=== PATIENT | female | born 1945 | race Caucasian/White ===

== ENCOUNTER 2024-04-06 12:31 | Inpatient (IN) | payer MEDICARE ==
[2024-04-06 13:07] LABS: #Basophils 0.06 10x3/uL (0.0-0.2); %Basophils 0.9 % (0.0-1.0); %Eosinophils 3.2 % (0.0-10.0); %Lymphocytes 33.9 % (21.0-51.0); %Neutrophils 52.5 % (42.0-75.0); Hematocrit 35.8 % (36.0-47.0); Hemoglobin 12.1 g/dL (12.0-16.0); Mean Corpuscular HGB CONC 33.8 g/dL (32.0-36.0); Mean Corpuscular Hemoglobin 32.5 pg (27.0-31.0); Mean Corpuscular Volume 96.2 fL (78.0-98.0); Mean Platelet Volume 9.7 fL (7.4-10.4); Platelet Count 248 10x3/uL (130-400); Red Blood Cell (RBC) Count 3.72 mill/uL (4.20-5.40)
[2024-04-06 13:34] LABS: Troponin I Less than 0.010 ng/mL (< 0.028)
[2024-04-06 13:35] LABS: ALT (SGPT) 19 U/L (8-55); AST (SGOT) 14 U/L (5-34); Albumin 3.9 g/dL (3.4-4.8); Alkaline Phosphatase 62 U/L (40-110); Anion Gap 15 mmol/L (10-20); BUN (Urea Nitrogen) 59 mg/dL (9.8-20.1); Bilirubin, Total 0.3 mg/dL (0.2-1.2); Calc. Creatinine Clearance 0 mL/min (70-130); Calcium 9.6 mg/dL (7.8-10.44); Carbon Dioxide 11 mmol/L (23-31); Chloride 103 mmol/L (98-107); Estimated GFR 20; Globulin 2.5 g/dL (2.4-3.5); Glucose 100 mg/dL (83-110); Magnesium 2.2 mg/dL (1.6-2.6); Potassium 6.8 mmol/L (3.5-5.1); Protein, Total 6.4 g/dL (5.8-8.1); Sodium 122 mmol/L (136-145)
[2024-04-06] MEDS ORDERED: Sodium Bicarb 50 MEQ/50 ML Abboject 8.4% SYRINGE ONE (13:47)
[2024-04-06] MEDS ORDERED: CALCIUM GLUC 1 GM/NS 50 ML IV Bag ONE (13:47)
[2024-04-06] MEDS ORDERED: Insulin Regular, Human 100 UNIT/ML 10 ML VIAL ONE (14:20)
[2024-04-06] MEDS ORDERED: Albuterol 2.5 MG (3 mL) NEB ONE (14:24)
[2024-04-06] MEDS ORDERED: Sodium Bicarbonate 150 mEq in Dextrose 5% IV SCH (15:45)
[2024-04-06 17:31] LABS: Anion Gap 13 mmol/L (10-20); BUN (Urea Nitrogen) 50 mg/dL (9.8-20.1); Calc. Creatinine Clearance 0 mL/min (70-130); Calcium 9.4 mg/dL (7.8-10.44); Carbon Dioxide 12 mmol/L (23-31); Chloride 108 mmol/L (98-107); Estimated GFR 29; Glucose 95 mg/dL (83-110); Potassium 4.6 mmol/L (3.5-5.1); Sodium 128 mmol/L (136-145)
[2024-04-06 17:39] VITALS: BMI 22.8
[2024-04-06] MEDS: Dextrose 50% Abboject 50 ML SYRINGE SLOW IVP SCH (17:50)
[2024-04-06] MEDS: Pancrelipase DR 12,000 1 CAP PO SCH (17:51)
[2024-04-06] MEDS: Sodium Bicarbonate 150 MEQ in Dextrose 5% in Water 1,000 ML IV SCH (17:51)
[2024-04-06] MEDS: Acetaminophen 325 MG TAB PO SCH (18:34)
[2024-04-06] MEDS: Atorvastatin Calcium 20 MG TAB PO SCH (20:15)
[2024-04-06 23:17] LABS: Sodium 127 mmol/L (136-145)
[2024-04-06 23:30] LABS: Bacteria/HPF 1+ HPF (None Seen); Bilirubin Negative (Negative); Blood, Urine Negative (Negative); Clarity Clear (Clear); Glucose, Urine (Dipstick) Normal (Negative); Ketone, Urine Negative (Negative); Leukocyte Negative Leu/uL (Negative); Nitrite Negative (Negative); Protein, Urine (Dipstick) Negative (Neg-Trace); RBC/HPF 0-3 HPF (0-3); Specific Gravity, Urine 1.009 (1.002-1.036); Squamous Epithelial None Seen HPF (0-3); Urobilinogen Normal mg/dL (Less than 2); WBC/HPF 0-3 HPF (0-3)
[2024-04-07] MEDS: traZODone HCl 50 MG TAB PO SCH ×2 (00:07→21:11)
[2024-04-07 02:12] LABS: #Basophils 0.06 10x3/uL (0.0-0.2); %Lymphocytes 36.7 % (21.0-51.0); %Monocytes 11.4 % (0.0-10.0); %Neutrophils 46.6 % (42.0-75.0); Hematocrit 29.3 % (36.0-47.0); Hemoglobin 10.4 g/dL (12.0-16.0); Mean Corpuscular HGB CONC 35.5 g/dL (32.0-36.0); Mean Corpuscular Hemoglobin 32.2 pg (27.0-31.0); Mean Corpuscular Volume 90.7 fL (78.0-98.0); Platelet Count 210 10x3/uL (130-400); RBC Distribution Width 12.8 % (11.5-14.5); Red Blood Cell (RBC) Count 3.23 mill/uL (4.20-5.40)
[2024-04-07 02:20] LABS: Sodium 124 mmol/L (136-145)
[2024-04-07 03:24] LABS: Anion Gap 13 mmol/L (10-20); BUN (Urea Nitrogen) 47 mg/dL (9.8-20.1); Calc. Creatinine Clearance 26 mL/min (70-130); Calcium 8.9 mg/dL (7.8-10.44); Carbon Dioxide 17 mmol/L (23-31); Chloride 100 mmol/L (98-107); Estimated GFR 34; Glucose 111 mg/dL (83-110); Potassium 4.7 mmol/L (3.5-5.1); Sodium 125 mmol/L (136-145)
[2024-04-07] MEDS: Enoxaparin 30 MG (0.3 mL) SYRINGE SC SCH (08:18)
[2024-04-07] MEDS: Sertraline 100 MG TAB PO SCH (08:18)
[2024-04-07] MEDS: Pantoprazole DR 40 MG TAB PO SCH (08:18)
[2024-04-07] MEDS: Sodium Bicarbonate 150 mEq in Dextrose 5% IV SCH (08:21)
[2024-04-07 13:33] LABS: Campy jejuni + coli by PCR POSITIVE (Negative); STEC Shiga Toxin 1+2 Negative (Negative); Salmonella spp. by PCR Negative (Negative); Shigella spp + EIEC by PCR Negative (Negative)
[2024-04-07 15:00] LABS: Anion Gap 14 mmol/L (10-20); BUN (Urea Nitrogen) 38 mg/dL (9.8-20.1); Calc. Creatinine Clearance 34 mL/min (70-130); Calcium 9.2 mg/dL (7.8-10.44); Carbon Dioxide 22 mmol/L (23-31); Chloride 97 mmol/L (98-107); Estimated GFR 48; Glucose 124 mg/dL (83-110); Potassium 4.4 mmol/L (3.5-5.1); Sodium 129 mmol/L (136-145)
[2024-04-07 16:42] LABS: Magnesium 1.8 mg/dL (1.6-2.6); Phosphorus 3.5 mg/dL (2.3-4.7)
[2024-04-07] MEDS ORDERED: Acetaminophen 325 MG TAB PO PRN (18:55)
[2024-04-07 19:47] LABS: Sodium 130 mmol/L (136-145)
[2024-04-07] MEDS: Thiamine 100 MG TAB PO SCH (21:08)
[2024-04-07] MEDS: Famotidine 20 MG TAB PO SCH (21:08)
[2024-04-07] MEDS: Folic Acid 1 MG TAB PO SCH (21:08)
[2024-04-07] MEDS: Montelukast Sodium 10 mg Tablet PO SCH (21:08)
[2024-04-07] MEDS: Multivit, Therapeutic 1 TAB PO SCH (21:10)
[2024-04-07] MEDS: Cyanocobalamin (Vitamin B-12) 1,000 MCG TAB PO SCH (21:10)
[2024-04-07] MEDS: Colestipol 1 GM TAB PO SCH (22:09)
[2024-04-07] MEDS: tiZANidine HCl 4 MG TAB PO PRN (22:32)
[2024-04-08 05:52] LABS: #Basophils 0.06 10x3/uL (0.0-0.2); %Basophils 1.2 % (0.0-1.0); %Eosinophils 5.4 % (0.0-10.0); %Monocytes 11.8 % (0.0-10.0); %Neutrophils 30.4 % (42.0-75.0); Hematocrit 28.5 % (36.0-47.0); Hemoglobin 10.1 g/dL (12.0-16.0); Mean Corpuscular HGB CONC 35.4 g/dL (32.0-36.0); Mean Corpuscular Hemoglobin 32.4 pg (27.0-31.0); Mean Corpuscular Volume 91.3 fL (78.0-98.0); Mean Platelet Volume 9.8 fL (7.4-10.4); Platelet Count 193 10x3/uL (130-400); RBC Distribution Width 12.9 % (11.5-14.5); Red Blood Cell (RBC) Count 3.12 mill/uL (4.20-5.40)
[2024-04-08 06:10] LABS: Anion Gap 11 mmol/L (10-20); BUN (Urea Nitrogen) 30 mg/dL (9.8-20.1); Calc. Creatinine Clearance 38 mL/min (70-130); Calcium 8.8 mg/dL (7.8-10.44); Carbon Dioxide 31 mmol/L (23-31); Chloride 94 mmol/L (98-107); Estimated GFR 55; Glucose 122 mg/dL (83-110); Magnesium 1.7 mg/dL (1.6-2.6); Phosphorus 2.8 mg/dL (2.3-4.7); Potassium 3.8 mmol/L (3.5-5.1); Sodium 132 mmol/L (136-145)
[2024-04-08 07:12] LABS: Vitamin D, 25 Hydroxy 46.3 ng/ml (> 30.0)
[2024-04-08] MEDS ORDERED: Magnesium 2 GM/50 ML(in water) 2 GM in Premix 1 BAG IVPB SCH (09:00)
[2024-04-08] MEDS: Sodium Chloride 0.9% 1,000 ML IV SCH (09:40)
[2024-04-08] MEDS: Sertraline 100 MG TAB PO SCH (09:40)
[2024-04-08] MEDS: Aspirin Chewable 81 MG TAB PO SCH (09:40)
[2024-04-08] MEDS: Azithromycin 250 MG TAB PO SCH (09:41)
[2024-04-09] MEDS: Nitroglycerin 0.4 MG TAB (25 Tab Bottle) SL PRN (00:09)
[2024-04-09 01:06] LABS: Troponin I 0.022 ng/mL (< 0.028)
[2024-04-09 07:01] LABS: #Basophils 0.04 10x3/uL (0.0-0.2); %Basophils 0.7 % (0.0-1.0); %Eosinophils 5.7 % (0.0-10.0); %Lymphocytes 51.8 % (21.0-51.0); %Monocytes 11.1 % (0.0-10.0); %Neutrophils 30.5 % (42.0-75.0); Hematocrit 28.3 % (36.0-47.0); Hemoglobin 9.7 g/dL (12.0-16.0); Mean Corpuscular HGB CONC 34.3 g/dL (32.0-36.0); Mean Corpuscular Hemoglobin 32.7 pg (27.0-31.0); Mean Corpuscular Volume 95.3 fL (78.0-98.0); Mean Platelet Volume 10.1 fL (7.4-10.4); Platelet Count 186 10x3/uL (130-400); Red Blood Cell (RBC) Count 2.97 mill/uL (4.20-5.40)
[2024-04-09 07:26] LABS: Phosphorus 2.7 mg/dL (2.3-4.7)
[2024-04-09 07:28] LABS: Anion Gap 10 mmol/L (10-20); BUN (Urea Nitrogen) 17 mg/dL (9.8-20.1); Calc. Creatinine Clearance 46 mL/min (70-130); Calcium 8.8 mg/dL (7.8-10.44); Carbon Dioxide 27 mmol/L (23-31); Chloride 102 mmol/L (98-107); Estimated GFR 69; Glucose 87 mg/dL (83-110); Magnesium 1.7 mg/dL (1.6-2.6); Potassium 4.6 mmol/L (3.5-5.1); Sodium 134 mmol/L (136-145)
[2024-04-10 06:02] LABS: #Basophils 0.07 10x3/uL (0.0-0.2); %Basophils 1.1 % (0.0-1.0); %Eosinophils 6.4 % (0.0-10.0); %Lymphocytes 53.8 % (21.0-51.0); %Neutrophils 29.4 % (42.0-75.0); Hematocrit 30.6 % (36.0-47.0); Hemoglobin 10.3 g/dL (12.0-16.0); Mean Corpuscular HGB CONC 33.7 g/dL (32.0-36.0); Mean Corpuscular Hemoglobin 32.4 pg (27.0-31.0); Mean Corpuscular Volume 96.2 fL (78.0-98.0); Mean Platelet Volume 10.1 fL (7.4-10.4); Platelet Count 221 10x3/uL (130-400); Red Blood Cell (RBC) Count 3.18 mill/uL (4.20-5.40)
[2024-04-10 06:21] LABS: Anion Gap 7 mmol/L (10-20); BUN (Urea Nitrogen) 13 mg/dL (9.8-20.1); Calc. Creatinine Clearance 48 mL/min (70-130); Calcium 9.2 mg/dL (7.8-10.44); Carbon Dioxide 23 mmol/L (23-31); Chloride 108 mmol/L (98-107); Estimated GFR 72; Glucose 90 mg/dL (83-110); Potassium 4.5 mmol/L (3.5-5.1); Sodium 133 mmol/L (136-145)
[2024-04-10] MEDS: Lisinopril 20 MG TAB PO SCH (09:06)
[2024-04-10 11:34] VITALS: BP 145/73; TEMP 97.2
== END 2024-04-10 11:34 | disposition home or self-care (01) | DRG 372 ==
LOC: ERS 12:31 → IMCU/EMU 16:58 → T4-A 04-08 18:15
PROVIDERS: ADMIT Hospitalist; ATTEND Internal Medicine
DX: A04.5 Campylobacter enteritis (principal); E87.1 Hypo-osmolality and hyponatremia; N17.9 Acute kidney failure, unspecified; E87.20 Acidosis, unspecified; I13.0 Hypertensive heart and chronic kidney disease with heart failure and stage 1 through stage 4 chronic kidney disease, or unspecified chronic kidney disease; Z51.5 Encounter for palliative care; R53.1 Weakness; K52.9 Noninfective gastroenteritis and colitis, unspecified; F17.210 Nicotine dependence, cigarettes, uncomplicated; E87.5 Hyperkalemia; I73.9 Peripheral vascular disease, unspecified; J44.9 Chronic obstructive pulmonary disease, unspecified; N18.9 Chronic kidney disease, unspecified; I50.9 Heart failure, unspecified; D63.1 Anemia in chronic kidney disease
CPT/HCPCS: 36415; 71045; 76770; 80048; 80053; 81001; 82306; 82607; 82941; 83605; 83630; 83735; 84100; 84484; 84586; 85025; 86141; 86850; 86900; 86901; 87324; 87449; 87505; 93005; 93010; 96361; 96374; 96375; J0613; J1650; J1815; J7050; J7070; J7611; J7999

== ENCOUNTER 2024-04-11 13:55 | Inpatient (IN) | payer MEDICARE ==
[2024-04-11 14:46] LABS: #Basophils 0.07 10x3/uL (0.0-0.2); %Basophils 0.8 % (0.0-1.0); %Eosinophils 2.9 % (0.0-10.0); %Lymphocytes 40.8 % (21.0-51.0); %Monocytes 7.3 % (0.0-10.0); %Neutrophils 47.8 % (42.0-75.0); Hematocrit 31.7 % (36.0-47.0); Hemoglobin 11.1 g/dL (12.0-16.0); Mean Corpuscular Hemoglobin 32.6 pg (27.0-31.0); Mean Corpuscular Volume 93.2 fL (78.0-98.0); Mean Platelet Volume 9.6 fL (7.4-10.4); Platelet Count 263 10x3/uL (130-400); RBC Distribution Width 12.9 % (11.5-14.5)
[2024-04-11 14:57] LABS: Bacteria/HPF None Seen HPF (None Seen); Bilirubin Negative (Negative); Blood, Urine Negative (Negative); CAUTI Indications for Culture Pelvic or flank pain; Clarity Clear (Clear); Glucose, Urine (Dipstick) Normal (Negative); Ketone, Urine Negative (Negative); Leukocyte Negative Leu/uL (Negative); Nitrite Negative (Negative); Protein, Urine (Dipstick) Negative (Neg-Trace); RBC/HPF None Seen HPF (0-3); Specific Gravity, Urine 1.006 (1.002-1.036); Squamous Epithelial None Seen HPF (0-3); Urobilinogen Normal mg/dL (Less than 2); WBC/HPF 0-3 HPF (0-3)
[2024-04-11 15:03] LABS: ALT (SGPT) 14 U/L (8-55); AST (SGOT) 16 U/L (5-34); Albumin 3.7 g/dL (3.4-4.8); Alkaline Phosphatase 57 U/L (40-110); Anion Gap 15 mmol/L (10-20); BUN (Urea Nitrogen) 16 mg/dL (9.8-20.1); Bilirubin, Total 0.3 mg/dL (0.2-1.2); Calc. Creatinine Clearance 0 mL/min (70-130); Calcium 9.8 mg/dL (7.8-10.44); Carbon Dioxide 19 mmol/L (23-31); Chloride 104 mmol/L (98-107); Estimated GFR 49; Globulin 2.5 g/dL (2.4-3.5); Glucose 110 mg/dL (83-110); Magnesium 1.6 mg/dL (1.6-2.6); Potassium 4.3 mmol/L (3.5-5.1); Protein, Total 6.2 g/dL (5.8-8.1); Sodium 134 mmol/L (136-145)
[2024-04-11 15:03] LABS: Urine Culture Reflex No No
[2024-04-11 15:06] LABS: Troponin I Less than 0.010 ng/mL (< 0.028)
[2024-04-11] MEDS ORDERED: Nicotine 14 MG PATCH TD PRN (17:58)
[2024-04-11] MEDS ORDERED: Albuterol 200 PUFF (6.7GM INHALER) INH PRN (18:01)
[2024-04-11 19:37] LABS: Magnesium 1.6 mg/dL (1.6-2.6)
[2024-04-11] MEDS ORDERED: LIPASE PO SCH (21:00)
[2024-04-11] MEDS ORDERED: AMYLASE PO SCH (21:00)
[2024-04-11] MEDS ORDERED: PROTEASE PO SCH (21:00)
[2024-04-11] MEDS: Montelukast Sodium 10 mg Tablet PO SCH (21:47)
[2024-04-11] MEDS: traZODone HCl 50 MG TAB PO SCH (21:47)
[2024-04-11 23:32] VITALS: BMI 24.3
[2024-04-12 05:15] LABS: Cardiac Risk 2.3 (Less than 4.5)
[2024-04-12] MEDS: Famotidine 20 MG TAB PO SCH ×2 (09:01→20:55)
[2024-04-12] MEDS: Aspirin Chewable 81 MG TAB PO SCH (09:02)
[2024-04-12] MEDS: Pantoprazole DR 40 MG TAB PO SCH (09:02)
[2024-04-12] MEDS: Sertraline 100 MG TAB PO SCH (09:02)
[2024-04-12] MEDS: Atorvastatin Calcium 20 MG TAB PO SCH (09:02)
[2024-04-12] MEDS ORDERED: Ondansetron ODT 4 MG TAB PO PRN (15:39)
[2024-04-12] MEDS ORDERED: Ondansetron PF 4 MG/2 ML Vial IVP PRN (15:39)
[2024-04-12] MEDS: Acetaminophen 325 MG TAB PO SCH (16:49)
[2024-04-13 05:10] LABS: Anion Gap 9 mmol/L (10-20); BUN (Urea Nitrogen) 19 mg/dL (9.8-20.1); Calc. Creatinine Clearance 45 mL/min (70-130); Calcium 8.6 mg/dL (7.8-10.44); Carbon Dioxide 23 mmol/L (23-31); Cardiac Risk 2.2 (Less than 4.5); Chloride 105 mmol/L (98-107); Cholesterol 101 mg/dl (< 200 Desired); Estimated GFR 65; Glucose 100 mg/dL (83-110); HDL Cholesterol 45 mg/dL (>60 Neg Risk); LDL Cholesterol, Calculated 46 mg/dL; Sodium 133 mmol/L (136-145); Triglycerides 50 mg/dL (Less than 150)
[2024-04-13 05:11] LABS: #Basophils 0.06 10x3/uL (0.0-0.2); %Basophils 0.9 % (0.0-1.0); %Eosinophils 6.2 % (0.0-10.0); %Lymphocytes 55.7 % (21.0-51.0); %Neutrophils 28.9 % (42.0-75.0); Hematocrit 28.9 % (36.0-47.0); Hemoglobin 9.7 g/dL (12.0-16.0); Mean Corpuscular HGB CONC 33.6 g/dL (32.0-36.0); Mean Corpuscular Hemoglobin 31.9 pg (27.0-31.0); Mean Corpuscular Volume 95.1 fL (78.0-98.0); Mean Platelet Volume 10.1 fL (7.4-10.4); Platelet Count 210 10x3/uL (130-400); RBC Distribution Width 13.2 % (11.5-14.5); Red Blood Cell (RBC) Count 3.04 mill/uL (4.20-5.40)
[2024-04-13] MEDS: Enoxaparin 40 MG (0.4 mL) SYRINGE SC SCH (10:14)
[2024-04-13 12:54] VITALS: BMI 23.6
[2024-04-13] MEDS: NIFEdipine XL 30 MG ER.TAB PO SCH (18:40)
[2024-04-14 04:15] LABS: #Basophils 0.05 10x3/uL (0.0-0.2); %Basophils 0.8 % (0.0-1.0); %Eosinophils 6.6 % (0.0-10.0); %Lymphocytes 47.2 % (21.0-51.0); %Monocytes 7.4 % (0.0-10.0); %Neutrophils 37.7 % (42.0-75.0); Hematocrit 29.8 % (36.0-47.0); Hemoglobin 9.9 g/dL (12.0-16.0); Mean Corpuscular HGB CONC 33.2 g/dL (32.0-36.0); Mean Corpuscular Hemoglobin 32.2 pg (27.0-31.0); Mean Corpuscular Volume 97.1 fL (78.0-98.0); Mean Platelet Volume 9.6 fL (7.4-10.4); Platelet Count 201 10x3/uL (130-400); Red Blood Cell (RBC) Count 3.07 mill/uL (4.20-5.40)
[2024-04-14 04:55] LABS: ALT (SGPT) 13 U/L (8-55); AST (SGOT) 12 U/L (5-34); Alkaline Phosphatase 47 U/L (40-110); Anion Gap 11 mmol/L (10-20); BUN (Urea Nitrogen) 15 mg/dL (9.8-20.1); Bilirubin, Direct 0.1 mg/dL (0.1-0.3); Bilirubin, Total 0.2 mg/dL (0.2-1.2); Calc. Creatinine Clearance 46 mL/min (70-130); Calcium 8.8 mg/dL (7.8-10.44); Carbon Dioxide 24 mmol/L (23-31); Chloride 105 mmol/L (98-107); Estimated GFR 67; Glucose 92 mg/dL (83-110); Magnesium 1.8 mg/dL (1.6-2.6); Potassium 4.5 mmol/L (3.5-5.1); Protein, Total 5.1 g/dL (5.8-8.1); Sodium 135 mmol/L (136-145)
[2024-04-14] MEDS: NIFEdipine XL 30 MG ER.TAB PO SCH (10:18)
[2024-04-14] MEDS ORDERED: Lidocaine 1% w/Epinephrine 1:100K 20 ML VIAL ONE (13:07)
[2024-04-14] MEDS: Magnesium 2 GM/50 ML(in water) 2 GM in Premix 1 BAG IVPB SCH (18:44)
[2024-04-14] MEDS: hydrALAZINE 20 MG/ML VIAL SLOW IVP SCH (20:32)
[2024-04-14 23:32] LABS: ALT (SGPT) 16 U/L (8-55); AST (SGOT) 16 U/L (5-34); Albumin 3.4 g/dL (3.4-4.8); Alkaline Phosphatase 57 U/L (40-110); Anion Gap 14 mmol/L (10-20); BUN (Urea Nitrogen) 16 mg/dL (9.8-20.1); Bilirubin, Total 0.2 mg/dL (0.2-1.2); Calc. Creatinine Clearance 47 mL/min (70-130); Calcium 8.9 mg/dL (7.8-10.44); Carbon Dioxide 22 mmol/L (23-31); Chloride 107 mmol/L (98-107); Estimated GFR 66; Globulin 2.5 g/dL (2.4-3.5); Glucose 129 mg/dL (83-110); Potassium 3.1 mmol/L (3.5-5.1); Protein, Total 5.9 g/dL (5.8-8.1); Sodium 140 mmol/L (136-145)
[2024-04-15] MEDS: Potassium Chloride 20 MEQ TAB PO SCH (05:45)
[2024-04-15 05:57] LABS: Free T4 (Free Thyroxine) 0.89 ng/dL (0.70-1.48); Thyroid Stimulating Hormone 4.8122 uIU/mL (0.35-4.94)
[2024-04-15] MEDS: levETIRAcetam 500 MG TAB PO SCH (21:16)
[2024-04-16 05:08] VITALS: TEMP 97.9
[2024-04-16 06:17] LABS: Anion Gap 9 mmol/L (10-20); BUN (Urea Nitrogen) 13 mg/dL (9.8-20.1); Calc. Creatinine Clearance 42 mL/min (70-130); Carbon Dioxide 21 mmol/L (23-31); Chloride 108 mmol/L (98-107); Estimated GFR 57; Glucose 97 mg/dL (83-110); Sodium 133 mmol/L (136-145)
[2024-04-16 08:07] VITALS: BP 130/60
== END 2024-04-16 10:35 | disposition home or self-care (01) | DRG 261 ==
LOC: ERS 13:55 → 2SW 16:19 → OBSVTOIN 04-13 10:57
PROVIDERS: ADMIT Internal Medicine; ATTEND Family Medicine
PROC: 4A00X4Z Measurement of Central Nervous Electrical Activity, External Approach (ICD-10-PCS; principal; 2024-04-12)
PROC: 0JH602Z Insertion of Monitoring Device into Chest Subcutaneous Tissue and Fascia, Open Approach (ICD-10-PCS; 2024-04-14)
DX: R55 Syncope and collapse (principal); I13.0 Hypertensive heart and chronic kidney disease with heart failure and stage 1 through stage 4 chronic kidney disease, or unspecified chronic kidney disease; I50.32 Chronic diastolic (congestive) heart failure; K86.1 Other chronic pancreatitis; F44.5 Conversion disorder with seizures or convulsions; I50.9 Heart failure, unspecified; E78.5 Hyperlipidemia, unspecified; J44.9 Chronic obstructive pulmonary disease, unspecified; I73.9 Peripheral vascular disease, unspecified; I44.7 Left bundle-branch block, unspecified; N18.30 Chronic kidney disease, stage 3 unspecified; K52.9 Noninfective gastroenteritis and colitis, unspecified; Z98.890 Other specified postprocedural states; Z90.710 Acquired absence of both cervix and uterus; Z79.899 Other long term (current) drug therapy; Z79.82 Long term (current) use of aspirin; Z90.49 Acquired absence of other specified parts of digestive tract
CPT/HCPCS: 33285; 36415; 36416; 70450; 70551; 71046; 80048; 80053; 80061; 80076; 81001; 83735; 83880; 84146; 84439; 84443; 84481; 84484; 85025; 85379; 93005; 93306; 93880; 94760; 95700; 95711; 95819; 96372; C1764; G0378; J0360; J1650; J3475

== ENCOUNTER 2025-07-05 09:15 | Outpatient (CLI) | payer OTHER ==
[2025-07-05] MEDS ORDERED: E-Z-HD 98% W/W 340GM BOT (x-ray ONLY) ONE (09:46)
[2025-07-05] MEDS ORDERED: Barium Sulfate 96% 176 GM BOT (xray ONLY) ONE ×2 (09:46→09:49)
== END 2025-07-05 09:16 | disposition home or self-care (01) ==
LOC: RAD 09:15
PROVIDERS: ATTEND Physician Assistant Medical
DX: K21.9 Gastro-esophageal reflux disease without esophagitis (principal); R13.10 Dysphagia, unspecified; R14.0 Abdominal distension (gaseous); R68.89 Other general symptoms and signs; K31.89 Other diseases of stomach and duodenum
CPT/HCPCS: 74220

== ENCOUNTER 2025-09-16 13:05 | Outpatient (CLI) | payer OTHER | END 2025-09-16 13:06 | disposition home or self-care (01) | LOC: MRI 13:05 | PROVIDERS: ATTEND Orthopaedic Surgery | DX: M48.02 Spinal stenosis, cervical region (principal); M48.04 Spinal stenosis, thoracic region; M47.814 Spondylosis without myelopathy or radiculopathy, thoracic region; M40.204 Unspecified kyphosis, thoracic region; M48.05 Spinal stenosis, thoracolumbar region; M47.812 Spondylosis without myelopathy or radiculopathy, cervical region | CPT/HCPCS: 72141; 72146 ==